=== PATIENT | female | born 1950 | race Caucasian/White ===

== ENCOUNTER → 2018-11-27 | Outpatient (CLI) | payer MEDICARE ==
[~2018-11-27] MED LIST: 8 Hour C500 MG; ALBU90OI6 INH; ALPR.25 PO; ERGO50000 PO; ESCI10 PO; HYDACE5 PO; Hair, Skin & N1 EACH PO; LACTASE ENZ PO; LANS30EC PO; MAGOXI400 PO; Mucinex Dm Tab1 EAC1; Non-Pseudo Sinu10 MG PO; OMEP10ER; OMEP20ER PO; PROP20 PO; PSEUDOEPHEDRINE30 MG PO; Papaya1 EAC1 PO; Prilosec20 MG PO; SERT50 PO; SUCR1 PO; VITAMIN C500 MG PO; VITAMIN D5000 UNIT PO; Zofran8 MG PO
[2018-11-27 16:40] LABS: Appearance, Urine Clear (Clear); Bilirubin, Urine Neg (Neg); Blood, Urine Neg (Neg); Color, Urine Yellow (P-Yellow); Glucose Qualitative, Urine Neg (Neg); Ketones, Urine Neg (Neg); Leukocyte Esterase, Urine Neg (Neg); Nitrite, Urine Neg (Neg); Protein, Urine Neg (Neg); Urobilinogen, Urine NORM (Normal)
== END | disposition home or self-care (01) ==
LOC: LAB 16:32 → LAB SHORT 16:32
PROVIDERS: Internal Medicine
DX: N39.0 Urinary tract infection, site not specified (principal)
CPT/HCPCS: 81003

== ENCOUNTER 2018-12-16 00:03 | Day surgery (SDC) | payer MEDICARE ==
[~2018-12-16 00:03] MED LIST changes: -ALBU90OI6 INH; -ESCI10 PO; -Hair, Skin & N1 EACH PO; -MAGOXI400 PO; -PSEUDOEPHEDRINE30 MG PO; -Papaya1 EAC1 PO; -VITAMIN C500 MG PO; -VITAMIN D5000 UNIT PO
[2018-12-16] MEDS ORDERED: VITAMIN D5000 UNIT PO (11:50)
[2018-12-16] MEDS ORDERED: ESCI10 PO (11:50)
[2018-12-16] MEDS ORDERED: Hair, Skin & N1 EACH PO (11:51)
[2018-12-16] MEDS ORDERED: MAGOXI400 PO (11:51)
[2018-12-16] MEDS ORDERED: VITAMIN C500 MG PO (11:52)
[2018-12-16] MEDS ORDERED: Papaya1 EAC1 PO (11:53)
[2018-12-16] MEDS ORDERED: ALBU90OI6 INH (11:55)
[2018-12-16] MEDS ORDERED: PSEUDOEPHEDRINE30 MG PO (11:56)
--- NOTE | 2018-12-16 12:01 | NUR ---
PT DRANK A TOTAL OF 62 OZ (APPROX 1800 CC) PRIOR TO BLADDER SCAN. 1015 PREVOID RESIDUAL 152 CC, DIFFICULT TO FIND BLADDER, MORE FLUID VOLUME ON THE LLQ THAN CENTER OR RLQ. 1020 PVR 85 CC, VOIDED 250 CC. WAITED 35 MINUTES TO RECHECK. AT 1055 PREVOID RESIDUAL 77, PT VOIDED 100 CC, DIFFICULT TO GET ACCURATE PVR, MORE VOLUME ON THE LLQ AGAIN. VOLUMES RANGED FROM 14CC TO 92CC, NONE WERE BULLSEYE. PT TOLERATED WELL, C/O MILD PAIN ON LLQ.
== END 2018-12-16 11:05 | disposition home or self-care (01) ==
LOC: ATC 00:03
DX: R35.0 Frequency of micturition (principal); N39.46 Mixed incontinence
CPT/HCPCS: 51798

== ENCOUNTER → 2020-01-07 | Outpatient (CLI) | payer MEDICARE ==
[~2020-01-07] MED LIST changes: +ALBU90OI6 INH; +ESCI10 PO; +Hair, Skin & N1 EACH PO; +MAGOXI400 PO; +PSEUDOEPHEDRINE30 MG PO; +Papaya1 EAC1 PO; +VITAMIN C500 MG PO; +VITAMIN D5000 UNIT PO
[2020-01-07 14:39] LABS: Source, Urine Clean Catch
[2020-01-07 15:06] LABS: Appearance, Urine Clear (Clear); Bilirubin, Urine Neg (Neg); Blood, Urine Neg (Neg); Color, Urine Yellow (P-Yellow); Glucose Qualitative, Urine Neg (Neg); Ketones, Urine Neg (Neg); Leukocyte Esterase, Urine Neg (Neg); Nitrite, Urine Neg (Neg); Protein, Urine Neg (Neg); Urobilinogen, Urine NORM (Normal)
== END | disposition home or self-care (01) ==
LOC: LAB 14:37 → LAB SHORT 14:37 → LAB FUT 01-07 13:05
PROVIDERS: Internal Medicine
DX: N39.41 Urge incontinence (principal)
CPT/HCPCS: 81003